=== PATIENT | male | born 1960 | race Caucasian/White ===

== ENCOUNTER → 2018-10-28 | Outpatient (CLI) | payer OTHER ==
[2018-10-28] VITALS (33 sets, daily range): BP systolic 70–150; BP diastolic 62–88
[~2018-10-28] VITALS: Ht 180.3 cm; Wt 113.4 kg
[~2018-10-28] MED LIST: ATROPINE INJECTION 1 MG/10 ML SYR (ABBOTT) ONE; CATHETER FLUSH 10 ML SYR IV PRN; NS IV 1000 ML 1,000 ML IV SCH; NS IV 1000 ML 1,000 ML ONE; REGADENOSON 0.4 MG/5 ML SYR (LEXISCAN) IV ONE
--- NOTE | 2018-10-29 09:30 | Cardiology Stress Test Report ---
Stress Test Report Type of NM Stress Test: Test Type: LEXISCAN 0.4MG/5ML Date of Procedure/Referring: Date of Procedure: Oct 29, 2018 PCP Ila Espinosa MD Admitting Physician Pascual Solis MD Indications: Syncope Baseline Heart Rate: 67 Baseline Blood Pressure: Blood Pressure Systolic: 112 Blood Pressure Diastolic: 70 Baseline EKG: Baseline EKG: Sinus rhythm Summary & Conclusion: Summary: The patient was brought to the stress lab after informed consent was taken. Stress test was performed according to the Lexiscan protocol. 0.4 mg of IV Lexiscan was given. Low-grade exercise was performed. Baseline EKG showed sinus rhythm at 67 BPM. Initial blood pressure was 136/80 mmHg. Maximum heart rate was 106 bpm and blood pressure 172/83 mmHg. Patient did not have any chest pain, arrhythmias or ST segment changes during the stress test. 10.48 mCi of Myoview were given for rest imaging and 28.4 mCi of Myoview given for stress imaging. Transient ischemic dilatation score 1.22, EF 86 percent. Normal wall motion. Moderate inferior apical reversible defect. SSS 5, SRS 1, SDS 4. Conclusion: Pharmacological stress test was negative for ischemia. Normal LV function with no wall motion abnormalities. Evidence of inferior ischemia - Coronary angiography is recommended. Ila ESPINOSA MD Oct 29, 2018 9:30 am
== END ==
LOC: CARD 07:27
PROVIDERS: ATTEND Internal Medicine Interventional Cardiology
DX: R55 Syncope and collapse (principal); I12.9 Hypertensive chronic kidney disease with stage 1 through stage 4 chronic kidney disease, or unspecified chronic kidney disease; E78.5 Hyperlipidemia, unspecified; N18.9 Chronic kidney disease, unspecified; E03.9 Hypothyroidism, unspecified; Z82.49 Family history of ischemic heart disease and other diseases of the circulatory system
CPT/HCPCS: 78452; 93017; 93660

== ENCOUNTER 2018-11-04 06:56 | Day surgery (SDC) | payer OTHER ==
[~2018-11-04] VITALS: Ht 180.3 cm; Wt 113.4 kg
[2018-11-04] VITALS (14 sets, daily range): BP systolic 122–162; BP diastolic 73–111
[2018-11-04] MEDS ORDERED: NS IV 1000 ML 1,000 ML IV SCH ×2 (07:30→10:08)
[2018-11-04] MEDS ORDERED: NS IV 1000 ML 1,000 ML ONE (07:30)
[2018-11-04] MEDS ORDERED: HEParin (CATH LAB) 2,000 ML IV ONE (07:30)
[2018-11-04] MEDS ORDERED: LIDOCAINE 1% INJ 20 ML 20 ML VIAL ONE (07:30)
[2018-11-04 08:04] LABS: HEMOGLOBIN 17.2 G/DL (13.3-17.7); MEAN PLATELET VOLUME 9.8 FL (7.4-10.4); RED BLOOD COUNT 5.77 10^6/uL (4.35-5.85); WHITE BLOOD COUNT 8.4 10^3/uL (4.3-11.0)
[2018-11-04] MEDS ORDERED: ATOR20TA66 PO (08:12)
[2018-11-04] MEDS ORDERED: ALLO100T PO (08:12)
[2018-11-04] MEDS ORDERED: CLON0.2T PO (08:12)
[2018-11-04] MEDS ORDERED: CHOL200059 PO (08:12)
[2018-11-04] MEDS ORDERED: TAMS0.4C2 PO (08:12)
[2018-11-04] MEDS ORDERED: VERA240C2 PO (08:12)
[2018-11-04] MEDS ORDERED: COLC0.6C3 PO (08:12)
[2018-11-04] MEDS ORDERED: THYR65TA5 PO (08:12)
[2018-11-04] MEDS ORDERED: fentaNYL INJECTION 100 MCG/2 ML AMP ONE (08:14)
[2018-11-04] MEDS ORDERED: MIDAZOLAM 5 MG/5 ML (VERSED) VIAL ONE (08:14)
[2018-11-04 08:15] LABS: PROTHROMBIN TIME PATIENT 13.4 SEC (12.2-14.7)
[2018-11-04] MEDS ORDERED: NITRO DRIP 25000 MCG/D5W 250 ML IV ONE (08:15)
[2018-11-04] MEDS ORDERED: VERAPAMIL 5 MG/2 ML (CALAN) VIAL IV ONE (08:15)
[2018-11-04] MEDS ORDERED: HEParin 1000 UNIT/ML (10ML VIAL) FOR BOLUS ONE (08:15)
[2018-11-04 08:25] LABS: ALANINE AMINOTRANSFERASE 30 U/L (0-55); ALBUMIN 4.7 GM/DL (3.2-4.5); ALKALINE PHOSPHATASE 72 U/L (40-136); BILIRUBIN,TOTAL 1.8 MG/DL (0.1-1.0); BUN/CREATININE RATIO 14; CALCIUM 9.8 MG/DL (8.5-10.1); CARBON DIOXIDE 21 MMOL/L (21-32); CHLORIDE 106 MMOL/L (98-107); CHOLESTEROL 144 MG/DL (< 200); CREATININE SERUM 1.55 MG/DL (0.60-1.30); GFR ESTIMATED 46; GLUCOSE 109 MG/DL (70-105); HDL CHOLESTEROL 41 MG/DL (40-60); POTASSIUM 3.8 MMOL/L (3.6-5.0); SODIUM 139 MMOL/L (135-145); TOTAL PROTEIN 7.9 GM/DL (6.4-8.2); TRIGLYCERIDES 95 MG/DL (<150); VLDL CHOLESTEROL 19 MG/DL (5-40)
--- NOTE | 2018-11-04 10:08 | Cardiac Procedure Note-CS/ASA ---
Pre-Procedure Note Pre-Op Procedure Note H&P Reviewed The H&P was reviewed, patient examined and no changes noted. Date H&P Reviewed: Nov 04, 2018 Time H&P Reviewed: 08:50 Conscious Sedation Pre-Proced Time 08:50 ASA Score 3 For ASA 3 and 4: Consider anesthesia and medical clearance. Also, for patients with a history of failed moderate sedation consider anesthesia. Airway Lungs Heart ASA score ASA 1: a normal healthy patient ASA 2: a patient with a mild systemic disease (mid diabetes, controlled hypertension, obesity ASA 3: a patient with a severe systemic disease that limits activity (angina , COPD, prior Myocardial infarction) ASA 4: a patient with an incapacitating disease that is a constant threat to life (CHF, renal failure) ASA 5: a moribund patient not expected to survive 24 hrs. (ruptured aneurysm) ASA 6: a declared brain patient whose organs are being harvested. For emergent operations, add the letter E after the classification Mallampati Classification Grade 1 Sedation Plan Analgesia, Amnesia, Plan communicated to team members, Discussed options with patient/fam, Discussed risks with patient/fam The patient is an appropriate candidate to undergo the planned procedure, sedation, and anesthesia. The patient immediately re-assessed prior to indication. Ila VELASCO MD Nov 04, 2018 10:07
--- NOTE | 2018-11-04 10:10 | Coronary Angiography Report ---
Coronary Angiography Report DATE OF PROCEDURE: 11/04/18 INDICATION: Chest pain, Syncope, Abnormal nuclear stress test. PREOPERATIVE DIAGNOSIS: Chest pain, Syncope, Abnormal nuclear stress test. POSTOPERATIVE DIAGNOSIS: Patent epicardial coronary arteries. HISTORY: This is a 58-year-old gentleman who has history of chest discomfort and syncope. Nuclear stress test showed evidence of reversible moderate ischemia in the inferior territory. Therefore, the patient was scheduled for coronary angiography. PROCEDURES PERFORMED: 1.Coronary angiography. 2.Left heart catheterization. 3. Aortic root injection since we could not cannulate the RCA. COMPLICATIONS: None. SPECIMENS: None. ESTIMATED BLOOD LOSS: 10 mL ANESTHESIA: Conscious sedation ANTICOAGULATION: IV heparin CONTRAST: 123 mL. FLUOROSCOPY: 14.5 minutes. FLOUROSCOPY DOSE: 926 mgy. PROCEDURE DETAILS: The patient is a 58 male and was brought to the label rewinder after informed consent was taken. All the risks and complications were explained in detail; this included the risk of bleeding, vascular damage, stroke , OK and even . The patient was draped and prepped in the usual sterile fashion. Access was gained in the right radial artery with a 6 [place] sheath. left heart catheterization was performed with the [place] catheter. Coronaries could not be engaged with the [place] catheter therefore we exchanged to a JL 3.5 catheter for the left coronary system. We used a JR4 catheter for the right but were still not able to engage the RCA. A root shot was done to identify the ostium of the RCA. We then used a multipurpose guide catheter and were able to get reasonable nonselective images. FINDINGS: 1.Left main: Patent. 2.LAD: Patent. Slow flow noted in the mid LAD. 3.Left circumflex artery: Patent. Slow flow noted in the mid left circumflex artery. 4.RCA: No significant stenosis in the proximal, mid and distal segment. However we could not well visualize the most distal segments as mentioned above. 5.Left heart catheterization: LV pressure 109/9 mmHg. LVEDP 17 mmHg. Aortic pressure 109/69 mmHg. Normal LV function with no wall motion abnormalities. No gradient across the aortic valve. CONCLUSIONS: Patent epicardial coronary arteries. Continue primary prevention measures. Reji Espinosa MD, FACP, FACC, [facility] Interventional Cardiology Ila ESPINOSA MD Nov 04, 2018 10:10
--- NOTE | 2018-11-04 10:14 | Discharge Inst-Post CATH ---
Discharge Inst-CATH/EP Post Cardiac Cath/EP D/C Inst Follow Up/Plan Dr Espinosa on next scheduled appointment. CARDIAC CATH DISCHARGE INSTRUCTIONS *Hold Metformin for 48 hours post heart cath. ACTIVITY * Go Home directly and rest. * Limit activity of the leg (or wrist if it was used) for 7 days including aerobics, swimming, jogging, bicycling, etc. * Restrict stair-climbing for 7 days if possible, if not, climb up with your non -cath leg, then bring together on the same step. * Avoid lifting, pushing, pulling or excessive movement of the affected extremity for 7 days. * Customary sexual activity may be resumed after 2 days-use caution not to use a position that strains or causes pain to the affected extremity. * No driving for 24 hours. * NO SMOKING. * Avoid straining for bowel movements for 7 days. * Gentle walking on level ground is allowed. * Returning to work will depend on the type of procedure and the results. Your doctor will discuss this with you. CALL YOUR DOCTOR FOR ANY OF THE FOLLOWING: *If bleeding from the puncture site occurs- Apply gentle pressure to site with clean cloth and call your doctor or EMS. * If a knot or lump forms under the skin, increases in size, or causes pain. * If bruising appears to be worsening or moving further down your leg instead of disappearing. * Temperature above 101 F. CARE OF YOUR GROIN INCISION; * Bruising or purple discoloration of the skin near the puncture site is common. * You may shower only, no bathtub bathing for 5 days. Be careful to avoid slipping as your leg may feel stiff. * If a closure device was used on your femoral artery, please see the attached guide regarding care of the device and your leg. * Leave the dressing on, until removed by office staff. CARE OF YOUR WRIST INCISION; * Bruising or purple discoloration of the skin near the puncture site is common. * You may shower. * DO NOT submerge wrist. * Leave dressing on, until removed by office staff.. Ila ESPINOSA MD Nov 04, 2018 10:14
[2018-11-04] MEDS ORDERED: PATIENT MAY USE OWN MEDS, ALL PO SCH (10:15)
--- NOTE | 2018-11-04 10:15 | Cardiology Discharge Summary ---
Diagnosis/Chief Complaint Date of Admission 11/04/2018 Date of Discharge 11/04/2018 Admission Diagnosis Abnormal nuclear stress test, syncope, chest discomfort Final/Discharge Diagnosis Patent epicardial coronary arteries. Chief Complaint/HPI Chief Complaint/HPI This is a 58-year-old gentleman with history of syncope with nuclear stress test showing moderate reversible ischemia in the inferior territory. Coronary angiography is recommended. Discharge Summary Procedures Coronary angiography demonstrated patent epicardial coronary arteries. Normal EF on left ventriculogram. Discharge Physical Examination Normal. Hospital Course Unremarkable. Pending Labs Laboratory Tests 11/04/18 07:50: White Blood Count 8.4, Red Blood Count 5.77, Hemoglobin 17.2, Hematocrit 49, Mean Corpuscular Volume 85, Mean Corpuscular Hemoglobin 30, Mean Corpuscular Hemoglobin Concent 35, Red Cell Distribution Width 14.0, Platelet Count 207, Mean Platelet Volume 9.8, Prothrombin Time 13.4, INR Comment 1.0, Activated Partial Thromboplast Time 26, Sodium Level 139, Potassium Level 3.8, Chloride Level 106, Carbon Dioxide Level 21, Anion Gap 12, Blood Urea Nitrogen 21, Creatinine 1.55, Estimat Glomerular Filtration Rate 46, BUN/Creatinine Ratio 14 , Glucose Level 109, Calcium Level 9.8, Corrected Calcium , Total Bilirubin 1.8 , Aspartate Amino Transf (AST/SGOT) 26, Alanine Aminotransferase (ALT/SGPT) 30, Alkaline Phosphatase 72, Total Protein 7.9, Albumin 4.7, Triglycerides Level 95 , Cholesterol Level 144, LDL Cholesterol Direct 86, VLDL Cholesterol 19, HDL Cholesterol 41 Discussion & Recommendations Discussion Coronary angiography results were discussed at length with the patient and family. Discharge instructions were also discussed in detail. All questions were answered. Follow up appt.: Dr. Espinosa in one month after all cardiac testing is completed. Dicharge Diet: No Restrictions Activity as Tolerated: Yes Home Medications Reviewed patient Home Medication Reconciliation performed by pharmacy medication reconciliations conservation technician and/or nursing. Patients Allergies have been reviewed. Discharge Home Medications: Reviewed and agree with Discharge Medication list on patient's Discharge Instruction sheet Condition at discharge Stable. Instructions to patient/family Dr Espinosa on next scheduled appointment. Ila ESPINOSA MD Nov 04, 2018 10:15
== END 2018-11-04 13:45 | disposition home or self-care (01) ==
LOC: CARD 06:56 → SDC 10:30 → CARD 13:45
PROVIDERS: ATTEND Internal Medicine Interventional Cardiology
DX: R07.89 Other chest pain (principal); R55 Syncope and collapse; R94.39 Abnormal result of other cardiovascular function study; I12.9 Hypertensive chronic kidney disease with stage 1 through stage 4 chronic kidney disease, or unspecified chronic kidney disease; N18.9 Chronic kidney disease, unspecified; E78.5 Hyperlipidemia, unspecified; E03.9 Hypothyroidism, unspecified; Z82.49 Family history of ischemic heart disease and other diseases of the circulatory system; Z79.899 Other long term (current) drug therapy
CPT/HCPCS: 36415; 80053; 80061; 85027; 85610; 85730; 87081; 93458; 93567

== ENCOUNTER 2018-11-21 14:00 | Outpatient (RCR) | payer OTHER ==
--- NOTE | 2018-11-04 14:37 | Cardiology Tilt Table Test ---
Cardiology-Tilt Table Test Tilt Table Test Date 11/04/[address] Solis Baseline Vitals Heart rate 69 BPM. Blood pressure 136/80 mmHg. Vital Signs 946 a.m.: Pulse 40 BPM, blood pressure 70/68 mmHg. This was after nitroglycerin. Brief loss of consciousness. IV fluids given. Regained consciousness very quickly. 1010 a.m. pulse 56 bpm, blood pressure 112/70 mmHg. No significant change was noted with change of posture. Patient was tilted to 75 degrees for [10] minutes, then returned to supine position, given [2] sublingual nitroglycerin tablets, then tilted again to 75 degrees for [15] minutes. During test, patient was: symptomatic In Conclusion;: Positive Tilt Table Test Ila VELASCO MD Nov 04, 2018 2:37 pm
[~2018-11-21] VITALS: Ht 180.3 cm; Wt 113.9 kg
[~2018-11-21 14:00] MED LIST changes: +ALLO100T PO; +ATOR20TA66 PO; -ATROPINE INJECTION 1 MG/10 ML SYR (ABBOTT) ONE; +CHOL200059 PO; +CLON0.2T PO; +COLC0.6C3 PO; -NS IV 1000 ML 1,000 ML IV SCH; -NS IV 1000 ML 1,000 ML ONE; +TAMS0.4C2 PO; +THYR65TA5 PO; +VERA240C2 PO
== END 2019-01-26 | disposition home or self-care (01) ==
LOC: CARD 14:00
PROVIDERS: ATTEND Internal Medicine Interventional Cardiology
DX: R55 Syncope and collapse (principal); I10 Essential (primary) hypertension; E78.5 Hyperlipidemia, unspecified
CPT/HCPCS: 93270

== ENCOUNTER → 2018-11-29 | Outpatient (CLI) | payer OTHER ==
[~2018-11-29] MED LIST changes: -CATHETER FLUSH 10 ML SYR IV PRN; -REGADENOSON 0.4 MG/5 ML SYR (LEXISCAN) IV ONE
== END ==
LOC: CARD 08:47
PROVIDERS: ATTEND Internal Medicine Interventional Cardiology
DX: R55 Syncope and collapse (principal); I10 Essential (primary) hypertension; E78.5 Hyperlipidemia, unspecified; I34.0 Nonrheumatic mitral (valve) insufficiency
CPT/HCPCS: 93306

== ENCOUNTER 2018-12-01 16:31 | Outpatient (RCR) | payer OTHER | END 2019-03-01 | disposition home or self-care (01) | LOC: CARD 16:31 | PROVIDERS: ATTEND Internal Medicine Interventional Cardiology | DX: R55 Syncope and collapse (principal); R42 Dizziness and giddiness; I49.5 Sick sinus syndrome | CPT/HCPCS: 93225; 93226 ==

== ENCOUNTER 2018-12-08 15:00 | Outpatient (RCR) | payer OTHER | END 2019-03-08 | disposition home or self-care (01) | LOC: CARD 15:00 | PROVIDERS: ATTEND Internal Medicine Interventional Cardiology | DX: R55 Syncope and collapse (principal); I49.5 Sick sinus syndrome; R42 Dizziness and giddiness ==

== ENCOUNTER 2019-10-31 14:37 | Emergency (ER) | payer OTHER ==
[~2019-10-31] VITALS: Ht 180 cm; Wt 115.5 kg
[2019-10-31] MEDS ORDERED: NITROGLYCERIN 0.4 MG SL TABS BTL 25'S SL PRN (15:00)
[2019-10-31] MEDS ORDERED: ASPIRIN 81 MG CHEW (CHILDREN'S ASA) PO ONE (15:00)
[2019-10-31 15:03] LABS: BASOPHILS % (AUTO) 0 % (0-10); EOSINOPHILS # (AUTO) 0.2 10^3/uL (0.0-0.3); EOSINOPHILS % (AUTO) 3 % (0-10); HEMATOCRIT 48 % (40-54); HEMOGLOBIN 17.3 G/DL (13.3-17.7); LYMPHOCYTES # (AUTO) 1.7 X 10^3 (1.0-4.0); LYMPHOCYTES % (AUTO) 23 % (12-44); MEAN CORPUSCULAR HEMOGLOBIN 31 PG (25-34); MEAN CORPUSCULAR HGB CONC 36 G/DL (32-36); MEAN CORPUSCULAR VOLUME 86 FL (80-99); MEAN PLATELET VOLUME 10.2 FL (7.4-10.4); MONOCYTES # (AUTO) 0.6 X 10^3 (0.0-1.0); MONOCYTES % (AUTO) 7 % (0-12); NEUTROPHILS # (AUTO) 5.1 X 10^3 (1.8-7.8); NEUTROPHILS % (AUTO) 67 % (42-75); PLATELET COUNT 190 10^3/uL (130-400); RED CELL DISTRIBUTION WIDTH 13.8 % (10.0-14.5); WHITE BLOOD COUNT 7.6 10^3/uL (4.3-11.0)
--- NOTE | 2019-10-31 15:08 | NUR ---
1503 Nitro #1 adm. Initial BP 175/99 Pain 4 1508 BP 172/98 Pain 0/10 Provider notified.
[2019-10-31 15:17] LABS: PROTHROMBIN TIME PATIENT 13.6 SEC (12.2-14.7)
--- NOTE | 2019-10-31 15:19 | Diagnostic Imaging Report ---
PATIENT HISTORY: Chest pain. TECHNIQUE: Single frontal view of the chest. COMPARISON: None FINDINGS: The lung volumes are normal. No focal consolidation is seen. No large pleural effusion or pneumothorax is seen. The cardiomediastinal silhouette is normal in size and contour. No acute osseous abnormality is seen. IMPRESSION: No acute pulmonary abnormality seen. Dictated by: Dictated on workstation # [id number]
[2019-10-31 15:40] LABS: ALBUMIN 4.5 GM/DL (3.2-4.5); BILIRUBIN,TOTAL 1.4 MG/DL (0.1-1.0); CALCIUM 9.7 MG/DL (8.5-10.1); CREATININE SERUM 1.62 MG/DL (0.60-1.30); MAGNESIUM 2.1 MG/DL (1.6-2.4); POTASSIUM 4.2 MMOL/L (3.6-5.0); TOTAL PROTEIN 7.8 GM/DL (6.4-8.2)
[2019-10-31 15:48] LABS: CREATINE KINASE MB 3.1 NG/ML (<6.6)
--- NOTE | 2019-10-31 17:52 | ED Chest Pain ---
General Chief Complaint: Chest Pain Stated Complaint: CHEST PAIN Nursing Triage Note: Pt amb to room #2 with c/o medial chest discomfort for approx 4 days and hypertension. Pt described discomfort as "dull, ache" rated 4/10. Pt reports intemittent non productive cough and denies fever or chills. A&OX4. Spouse @ side. Nursing Sepsis Screen: No Definite Risk Source: patient History of Present Illness Date Seen by Provider: Oct 31, 2019 Time Seen by Provider: 14:50 Initial Comments PT ARRIVES VIA POV FROM HOME C/O DULL CHEST PAIN OFF AND ON FOR 4 DAYS. PAIN IS IN CENTER OF CHEST NO RADIATION OF PAIN NOTHING WORSENS OR IMPROVES PAIN NO SHORTNESS OF BREATH NO PALPITATIONS NO DIZZINESS NO NAUSEA/VOMITING NO SWEATS NO SYNCOPE HAS HAD MILD NON-PRODUCTIVE COUGH, NO FEVER NO PAIN WITH BREATHING HAS CHRONIC MILD SWELLING TO FEET/ANKLES AND IS NO DIFFERENT TODAY. NO HISTORY OF SIMILAR PAIN HAS NOT TAKEN ANYTHING FOR PAIN SYMPTOMS NO DIFFERENT TODAY HAS NOT SOUGHT CARE UNTIL TODAY PT DOES NOT KNOW HIS MEDICATIONS, AND ADMITS TO NOT TAKING THEM ON A REGULAR BASIS--MISSED DOSES PCP: DR. SANDERS COMPRESSION MOLDING MACHINE SETTER: DR. VELASCO Allergies and Home Medications Allergies Coded Allergies: No Known Drug Allergies (Unverified , 10/28/18) Home Medications Allopurinol 100 Mg Tablet, 100 MG PO DAILY, (Reported) Atorvastatin Calcium 20 Mg Tablet, 20 MG PO DAILY, (Reported) Cholecalciferol (Vitamin D3) 2,000 Unit Tablet, 2,000 UNIT PO DAILY, (Reported) Clonidine HCl 0.2 Mg Tablet, 0.2 MG PO BID, (Reported) Colchicine 0.6 Mg Capsule, 0.6 MG PO DAILY, (Reported) Tamsulosin HCl 0.4 Mg Cap.er.24h, 0.4 MG PO DAILY, (Reported) Daily until stone passage Thyroid,Pork 65 Mg Tablet, 65 MG PO DAILY, (Reported) Verapamil HCl 240 Mg Cap24h.pel, 240 MG PO DAILY, (Reported) Patient Home Medication List Home Medication List Reviewed: Yes Review of Systems Review of Systems Constitutional: no symptoms reported; No chills, No diaphoresis, No dizziness, No fever EENTM: No Symptoms Reported Respiratory: See HPI, Cough; Denies Shortness of Air Cardiovascular: See HPI, Chest Pain, Edema; Denies Irregular Heart Rate, Denies Lightheadedness, Denies Palpitations, Denies Syncope Gastrointestinal: No Symptoms Reported; Denies Abdominal Pain, Denies Nausea, Denies Vomiting Genitourinary: No Symptoms Reported Musculoskeletal: no symptoms reported; No back pain Skin: no symptoms reported Psychiatric/Neurological: No Symptoms Reported Endocrine: No Symptoms Reported Hematologic/Lymphatic: No Symptoms Reported Past [id number]-Dazidw Hx Patient Social History Alcohol Use: Rarely Uses Number of Drinks Today: AA Alcohol Beverage of Choice: Beer Recreational Drug Use: No Smoking Status: Never a Smoker 2nd Hand Smoke Exposure: No Recent Foreign Travel: No Contact w/Someone Who Travel: No Recent Infectious Disease Expo: No Recent Hopitalizations: Yes (SYNCOPAL EPISODES) Immunizations Up To Date Date of Influenza Vaccine: Jun 29, 2018 Past Medical History Surgeries: Yes (R SCIATIC NERVE SURGERY;SHOULDER SURGERY;CARDIAC CATH 10/2018- NO INTERVENT.) Adenoidectomy, Cardiac Respiratory: No Cardiac: Yes (CARDIAC CATH 11/04/18--NO INTERVENTION;PATENT ARTERIES/NO OCCLUSIVE DISEASE) Chronic Edema/Swelling, High Cholesterol, Hypertension, Syncope Neurological: Yes (SYNCOPE) Genitourinary: Yes ("WEAK KIDNEYS') Benign Prostatic Hyperpl Gastrointestinal: No Musculoskeletal: Yes (SHOULDER SURGERY) Gout Endocrine: Yes (TAKES THYROID MED) Hypothyroidsim HEENT: No Cancer: No Psychosocial: No Integumentary: No Blood Disorders: No Adverse Reaction/Blood Tranf: No Physical Exam Vital Signs Vital Signs - First Documented 10/31/19 14:40 Temp 36.7 Pulse 80 Resp 18 B/P (MAP) 170/92 (118) Pulse Ox 95 O2 Delivery Room Air Capillary Refill : Less Than 3 Seconds Height, Weight, BMI Height: 5'11.00" Weight: 250lbs. 0.0oz. 113.550950pj; 35.00 BMI Method: General Appearance: No Apparent Distress, WD/WN Neck: Full Range of Motion, Normal Inspection, Non Tender, Supple; No Carotid Bruit, No JVD Respiratory: Chest Non Tender, Normal Breath Sounds, No Accessory Muscle Use, No Respiratory Distress Cardiovascular: Regular Rate, Rhythm, No Edema, No JVD, No Murmur, Normal Peripheral Pulses Gastrointestinal: Non Tender, Soft Extremity: Normal Capillary Refill, Normal Inspection, Normal Range of Motion, Non Tender, No Calf Tenderness, Pedal Edema (1+ BILATERALLY) Neurologic/Psychiatric: Alert, Oriented x3, No Motor/Sensory Deficits, Normal Mood/Affect, 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 Norm as Tested Skin: Normal Color, Warm/Dry, Tattoos/Piercings (TATTOOS) Progress/Results/Core Measures Results/Orders Lab Results Laboratory Tests Test 10/31/19 14:55 10/31/19 17:58 Range/Units White Blood Count 7.6 4.3-11.0 10^3/uL Red Blood Count 5.64 4.35-5.85 10^6/uL Hemoglobin 17.3 13.3-17.7 G/DL Hematocrit 48 40-54 % Mean Corpuscular Volume 86 80-99 FL Mean Corpuscular Hemoglobin 31 25-34 PG Mean Corpuscular Hemoglobin Concent 36 32-36 G/DL Red Cell Distribution Width 13.8 10.0-14.5 % Platelet Count 190 130-400 10^3/uL Mean Platelet Volume 10.2 7.4-10.4 FL Neutrophils (%) (Auto) 67 42-75 % Lymphocytes (%) (Auto) 23 12-44 % Monocytes (%) (Auto) 7 0-12 % Eosinophils (%) (Auto) 3 0-10 % Basophils (%) (Auto) 0 0-10 % Neutrophils # (Auto) 5.1 1.8-7.8 X 10^3 Lymphocytes # (Auto) 1.7 1.0-4.0 X 10^3 Monocytes # (Auto) 0.6 0.0-1.0 X 10^3 Eosinophils # (Auto) 0.2 0.0-0.3 10^3/uL Basophils # (Auto) 0.0 0.0-0.1 10^3/uL Prothrombin Time 13.6 12.2-14.7 SEC INR Comment 1.0 0.8-1.4 Activated Partial Thromboplast Time 29 24-35 SEC Sodium Level 138 135-145 MMOL/L Potassium Level 4.2 3.6-5.0 MMOL/L Chloride Level 104 98-107 MMOL/L Carbon Dioxide Level 22 21-32 MMOL/L Anion Gap 12 5-14 MMOL/L Blood Urea Nitrogen 23 H 7-18 MG/DL Creatinine 1.62 H 0.60-1.30 MG/DL Estimat Glomerular Filtration Rate 44 BUN/Creatinine Ratio 14 Glucose Level 87 70-105 MG/DL Calcium Level 9.7 8.5-10.1 MG/DL Corrected Calcium 9.3 8.5-10.1 MG/DL Magnesium Level 2.1 1.6-2.4 MG/DL Total Bilirubin 1.4 H 0.1-1.0 MG/DL Aspartate Amino Transf (AST/SGOT) 26 5-34 U/L Alanine Aminotransferase (ALT/SGPT) 31 0-55 U/L Alkaline Phosphatase 71 40-136 U/L Total Creatine Kinase 96 30-200 U/L Creatine Kinase MB 3.1 <6.6 NG/ML Myoglobin 76.6 10.0-92.0 NG/ML Troponin I < 0.028 < 0.028 <0.028 NG/ML B-Type Natriuretic Peptide < 10.0 <100.0 PG/ML Total Protein 7.8 6.4-8.2 GM/DL Albumin 4.5 3.2-4.5 GM/DL Amylase Level 94 25-125 U/L Lipase 23 8-78 U/L My Orders Orders - DMITRI DOCKERY DO Cbc With Automated Diff (10/31/19 14:51) Magnesium (10/31/19 14:51) Chest 1 View, Ap/Pa Only (10/31/19 14:51) Ekg Tracing (10/31/19 14:51) Comprehensive Metabolic Panel (10/31/19 14:51) Myoglobin Serum (10/31/19 14:51) Protime With Inr (10/31/19 14:51) Partial Thromboplastin Time (10/31/19 14:51) O2 (10/31/19 14:51) Monitor-Rhythm Ecg Trace Only (10/31/19 14:51) Ed Iv/Invasive Line Start (10/31/19 14:51) Creatine Kinase (10/31/19 14:51) Creatine Kinase Mb (10/31/19 14:51) Lipase (10/31/19 14:51) Amylase (10/31/19 14:51) BNP (10/31/19 14:51) Troponin I (10/31/19 14:51) Nitroglycerin 0.4 Mg Btl 25's (Nitrostat (10/31/19 15:00) Aspirin Chewable Tablet (Baby Aspirin Ch (10/31/19 15:00) Ekg Tracing (10/31/19 17:15) Troponin I (10/31/19 17:15) Medications Given in ED Current Medications Medications Dose Ordered Sig/Anne Route Start Time Stop Time Status Last Admin Dose Admin Aspirin 324 mg ONCE ONCE PO 10/31/19 15:00 10/31/19 15:01 DC 10/31/19 15:03 324 MG Nitroglycerin 0.4 mg UD PRN SL 10/31/19 15:00 10/31/19 18:43 DC 10/31/19 15:03 0.4 MG Vital Signs/I&O 10/31/19 10/31/19 10/31/19 14:40 14:40 18:43 Temp 36.7 36.7 Pulse 80 79 Resp 18 17 B/P (MAP) 170/92 (118) 164/97 (118) Pulse Ox 95 97 O2 Delivery Room Air Room Air Room Air Blood Pressure Mean: 118 Progress Progress Note : Progress Note GIVEN NTG X 1--STATES PAIN IS COMPLETELY GONE NO FURTHER PAIN OR ANY OTHER SYMPTOMS FOR REMAINDER OF ER STAY Initial ECG Impression Date: Oct 31, 2019 Initial ECG Impression Time: 14:44 Initial ECG Rate: 81 Initial ECG Rhythm: Normal Sinus Initial ECG Impression: Normal EKG : EKG Time: 17:50 Rate: 76 Rhythm: Normal Sinus ECG Comparisson: Unchanged Diagnostic Imaging Comments CXR--NO ACUTE PROCESS, PER RADIOLOGIST REPORT AT 1522 Reviewed: Reviewed by Me Departure Communication (Admissions) 1554--SPOKE WITH DR. VELASCO, HE ADVISES 3 HOUR RULE OUT TROPONIN AND EKG, AND IF NEGATIVE AND PT REMAINS PAIN FREE, OK TO SEND HOME AND HE WILL SEE IN OFFICE THIS WEEK. WILL CALL HIM BACK IF ANY CHANGES. Impression Primary Impression: Chest pain Additional Impression: HTN (hypertension) Disposition: 01 HOME, SELF-CARE Condition: Improved Departure-Patient Inst. Referrals: Ila VELASCO MD, RICK D MD Patient Instructions: Chest Pain (DC) Add. Discharge Instructions: CONTINUE YOUR CURRENT MEDICATIONS PRESCRIBED FOLLOW UP WITH DR. VELASCO IN 1-2 DAYS, RETURN TO ER IF WORSE All discharge instructions reviewed with patient and/or family. Voiced understanding. DMITRI DOCKERY DO Oct 31, 2019 17:52
[2019-10-31 18:43] VITALS: BP 164/97
== END 2019-10-31 18:43 | disposition home or self-care (01) ==
LOC: EDUNIT# 14:37 → ER 14:38
DX: R07.89 Other chest pain (principal); I10 Essential (primary) hypertension; E78.00 Pure hypercholesterolemia, unspecified; M10.9 Gout, unspecified; E03.9 Hypothyroidism, unspecified; Z90.89 Acquired absence of other organs; Z95.9 Presence of cardiac and vascular implant and graft, unspecified
CPT/HCPCS: 36415; 71045; 80053; 82150; 82550; 82553; 83690; 83735; 83874; 83880; 84484; 85025; 85610; 85730; 93005; 93041

== ENCOUNTER → 2021-03-08 | Outpatient (CLI) | payer OTHER ==
[~2021-03-08] MED LIST changes: +CLN.2T PO; -CLON0.2T PO
== END ==
LOC: CARD 15:00
PROVIDERS: ATTEND Internal Medicine Cardiovascular Disease
DX: G47.33 Obstructive sleep apnea (adult) (pediatric) (principal)
CPT/HCPCS: 93306